=== PATIENT | male | born 1960 | race Hispanic/Latino ===

== ENCOUNTER 2017-09-11 09:57 | Outpatient (CLI) | payer BC ==
--- NOTE | 2017-09-12 08:16 | XRay Report ---
LUMBAR SPINE RADIOGRAPHS INDICATION: Dorsalgia. COMPARISON: None similar at this institution. FINDINGS: AP, lateral and oblique lumbar spine radiographs, 7 images demonstrate slight levoscoliosis apex about L3-L4. Moderate to large osteophytes noted throughout lumbar and imaged lower thoracic levels. No evidence of a pars defect. Mid to lower lumbar facet arthropathy suspected. Moderate to severe L3-L4, L4-L5 and L5-S1 disc narrowing with vacuum phenomenon and suspected neural foraminal narrowing. L3-L4 disc appears calcified/ossified. Demineralized bones. Nonobstructive bowel gas pattern. Intact SI joints. CONCLUSION: Multilevel imaged spinal degenerative changes, greatest mid to lower lumbar, as detailed above. Thank you for the opportunity to participate in this patient's care.
== END 2017-09-11 09:58 | disposition home or self-care (01) ==
LOC: XRAY 09:57
PROVIDERS: ATTEND Physician Assistant
DX: M47.896 Other spondylosis, lumbar region (principal); M25.78 Osteophyte, vertebrae; M12.88 Other specific arthropathies, not elsewhere classified, other specified site; M41.86 Other forms of scoliosis, lumbar region
CPT/HCPCS: 72110